=== PATIENT | female | born 1980 | race Caucasian/White ===

== ENCOUNTER 2021-08-03 08:53 | Emergency (ER) | payer BC, OTHER ==
[~2021-08-03] VITALS: Ht 175 cm; Wt 56.0 kg
[2021-08-03 08:53] VITALS: BP 141/127
[2021-08-03] MEDS ORDERED: KETOROLAC 30 MG/ML VIAL IVP ONE (09:30)
[2021-08-03] MEDS ORDERED: ORPHENADRINE 60 MG/2 ML (NORFLEX) AMP (ED ONLY) IV ONE (09:30)
--- NOTE | 2021-08-03 09:33 | ED Lower Extremity ---
General Chief Complaint: Lower Extremity Stated Complaint: R LEG CRAMPING Nursing Triage Note: ARRIVED VIA EMS FROM HOME WITH SEVERE RIGHT LEG CRAMPING STARTING LAST NIGHT. FENT 100MCG GIVEN VIA EMS. Source: patient Exam Limitations: no limitations History of Present Illness Date Seen by Provider: Aug 03, 2021 Time Seen by Provider: 09:18 Initial Comments Patient is a 40-year-old female who presents to the emergency department today with a chief complaint of severe right knee pain. She states she had acute onset of knee pain after having sex with her , she states she was bending her knee to get up out of the bed when it started suddenly. She states it reminded her of when she had charley horse pains as a child growing up except it has not let up. Patient states the pain radiates a little bit down her leg but she is able to move her foot. No numbness tingling or weakness to the leg. It hurts to attempt to move the right knee joint and move at the right hip. She is on medications for depression. She has a history of a knee trauma as a child but was never evaluated and she is uncertain which knee it was. She does not recall getting any treatment for a knee injury specifically. But she states it took months to improve. No recent illnesses such as fever, chills, cough or congestion. No chest pain or shortness of breath. She did take some THC edibles for pain during the night. She did not have Tylenol or aspirin or ibuprofen at home. She had some leftover pain medication and she took 3 throughout the night. Pain has continued to be severe. All other review of systems reviewed and negative except as stated. Onset: other (last night at 10/11pm) Pain/Injury Location: right knee Modifying Factors: Improves With Immobilization (improves pain slightly); Worse With Movement Allergies and Home Medications Allergies Uncoded Allergies: erythromycin (Allergy, Unknown, 08/03/21) Patient Home Medication List Home Medication List Reviewed: Yes Review of Systems Constitutional: see HPI, other (anxious and apprehensive) EENTM: no symptoms reported Respiratory: no symptoms reported Cardiovascular: no symptoms reported Gastrointestinal: no symptoms reported : No Musculoskeletal: joint pain (severe right lateral and posterior knee pain) Skin: no symptoms reported Psychiatric/Neurological: Anxiety, Depressed, Emotional Problems All Other Systems Reviewed Negative Unless Noted: Yes Past Cdubvdg-Wvkieu-Wclilp Hx Patient Social History Tobacco Use?: No Substance use?: Yes Substance type: Marijuana Alcohol Use?: Yes Alcohol Frequency: Rarely Physical Exam Vital Signs Vital Signs - First Documented 08/03/21 08:53 Temp 36.5 Pulse 126 Resp 16 B/P (MAP) 141/127 (132) Pulse Ox 95 O2 Delivery Room Air Capillary Refill : Less Than 3 Seconds Height, Weight, BMI Height: '" Weight: lbs. oz. kg; 18.00 BMI Method: General Appearance: WD/WN HEENT: PERRL/EOMI Neck: supple Cardiovascular: regular rate, rhythm (tachy 115) Respiratory: lungs clear, normal breath sounds Gastrointestinal: non tender, soft Hips: bilateral hip non-tender, bilateral hip normal inspection; left hip normal range of motion; bilateral hip no evidence of injury Legs: bilateral leg non-tender, bilateral leg normal inspection, bilateral leg no evidence of injury Knees: right knee bone tenderness (Lateral joint line tenderness), right knee pain, right knee other (Patient is very apprehensive with any passive range of motion, will not flex or extend the right leg at the knee. Held at about 15 degrees of flexion currently. Distal pulses in the foot are 2+. Normal cap refill. Normal sensation; tender also in the popliteal space more laterally on the right knee) Ankles: bilateral ankle non-tender, bilateral ankle normal inspection, bilateral ankle normal range of motion, bilateral ankle no evidence of injury Feet: bilateral foot non-tender, bilateral foot normal inspection, bilateral fo ot normal range of motion, bilateral foot no evidence of injury Neurologic/Tendon: normal sensation, normal motor functions Neurologic/Psychiatric: no motor/sensory deficits, alert, oriented x 3, other (anxious) Skin: normal color, warm/dry Progress/Results/Core Measures Results/Orders My Orders Orders - BRITANY CHEEMA MD Knee, Right, 3 Views (08/03/21 09:26) Ketorolac Injection (Toradol Injection) (08/03/21 09:30) Orphenadrine Inj (Ed Only) (Norflex Inje (08/03/21 09:30) Ct Extremity Lower Right Wo (08/03/21 10:10) Morphine Injection (Morphine Injection (08/03/21 10:46) Medications Given in ED Current Medications Medications Dose Ordered Sig/Avani Route Start Time Stop Time Status Last Admin Dose Admin Ketorolac Tromethamine 30 mg ONCE ONCE IVP 08/03/21 09:30 08/03/21 09:31 DC 08/03/21 09:36 30 MG Orphenadrine Citrate 60 mg ONCE ONCE IV 08/03/21 09:30 08/03/21 09:31 DC 08/03/21 09:37 60 MG Vital Signs/I&O 08/03/21 08:53 Temp 36.5 Pulse 126 Resp 16 B/P (MAP) 141/127 (132) Pulse Ox 95 O2 Delivery Room Air Blood Pressure Mean: 132 Progress Progress Note : Time: 11:51 Progress Note Discussed with Dr. Germain on for orthopedics. He states if we got her fully extended she is no longer "locked". We were able to get a knee immobilizer on her and get her up to the bathroom. Pain is moderately controlled. He will follow her up in the office and order outpatient MRI Diagnostic Imaging Diagonstic Imaging: Xray Comments [facility], [place] NAME: PARRISH STRONG [facility] REC#: [id number] PT STATUS: REG ER : 1980 PHYSICIAN: BRITANY CHEEMA MD ADMIT DATE: 08/03/21/ER Draft Date of Exam:08/03/21 KNEE, RIGHT, 3 VIEWS EXAMINATION: Right knee 3 views HISTORY: Right knee pain COMPARISON: None available. FINDINGS: There is a small knee joint effusion. No acute fracture. Joint spaces are normal. No dislocation. IMPRESSION: 1. Small knee joint effusion without fracture. Dictated on workstation # [id number] Dict: 08/03/21 0954 Trans: 08/03/21 0959 ERIC [id number] Interpreted by: RUSTAM HAWK MD Electronically signed by: Diagonstic Imaging: CT Comments [facility] [place] [place] NAME: PARRISH STRONG [employer] [facility] REC#: [id number] PT STATUS: REG ER : 1980 PHYSICIAN: BRITANY CHEEMA MD ADMIT DATE: 08/03/21/ER Draft Date of Exam:08/03/21 CT EXTREMITY LOWER RIGHT WO PROCEDURE: CT right lower extremity without contrast. TECHNIQUE: Axially acquired CT was obtained through the right lower extremity without intravenous contrast. Coronal and sagittal reformations were also performed. Auto Exposure Controls were utilized during the CT exam to meet ALARA standards for radiation dose reduction. INDICATION: Severe right leg cramping COMPARISON: None available. FINDINGS: There is no femur fracture. No tibial fracture. No fibular fracture. No patellar fracture. Alignment is normal. There is a small knee joint effusion. The anterior and posterior cruciate ligaments are grossly intact. Patellar tendon and quadriceps tendons are intact. IMPRESSION: 1. No fracture in the right knee. Dictated on workstation # [id number] Dict: 08/03/21 1118 Trans: 08/03/21 1122 CV [id number] Interpreted by: RUSTAM HAWK MD Electronically signed by: Departure Impression Primary Impression: Acute knee pain Qualified Codes: M25.561 - Pain in right knee Disposition: HOME, SELF-CARE Condition: Stable Departure-Patient Inst. Decision time for Depature: 11:41 Referrals: EDWIN GERMAIN MD Patient Instructions: Knee Pain Add. Discharge Instructions: Continue to put ice on your knee for 20 minutes at a time, 2-3 times daily. Uxyf-wwy-wfkiulc ibuprofen, 600 mg which is 3 tablets every 6 hours with food for pain. Keep the knee immobilizer in place while up and moving around. Use your toe to balance with crutches when walking. I have written you a prescription for some hydrocodone, take 1 every 6 hours as needed for more severe pain. You should be on stool softeners if you are taking this medication daily. Please call and follow-up with Dr. Germain, orthopedics. His contact information is on this paperwork. Return to the emergency room for any new, concerning or emergent complaints. Scripts Hydrocodone/Acetaminophen (Hydrocodone-Acetamin 5-325 mg) 5 Mg-325 Mg Tablet 1 TAB PO Q6H PRN for PAIN-MODERATE (5-7), #12 TAB Prov: BRITANY CHEEMA MD 08/03/21 Copy Copies To 1: EDWIN GERMAIN MD, KATHRYN M MD Aug 03, 2021 09:33
--- NOTE | 2021-08-03 10:00 | Diagnostic Imaging Report ---
EXAMINATION: Right knee 3 views HISTORY: Right knee pain COMPARISON: None available. FINDINGS: There is a small knee joint effusion. No acute fracture. Joint spaces are normal. No dislocation. IMPRESSION: 1. Small knee joint effusion without fracture. Dictated by: Dictated on workstation # [id number]
[2021-08-03] MEDS ORDERED: morphine INJ 10 MG/ML 1ML (SYR OR VIAL) IVP STA (10:46)
--- NOTE | 2021-08-03 11:23 | Diagnostic Imaging Report ---
PROCEDURE: CT right lower extremity without contrast. TECHNIQUE: Axially acquired CT was obtained through the right lower extremity without intravenous contrast. Coronal and sagittal reformations were also performed. Auto Exposure Controls were utilized during the CT exam to meet ALARA standards for radiation dose reduction. INDICATION: Severe right leg cramping COMPARISON: None available. FINDINGS: There is no femur fracture. No tibial fracture. No fibular fracture. No patellar fracture. Alignment is normal. There is a small knee joint effusion. The anterior and posterior cruciate ligaments are grossly intact. Patellar tendon and quadriceps tendons are intact. IMPRESSION: 1. No fracture in the right knee. Dictated by: Dictated on workstation # [id number]
[2021-08-03] MEDS ORDERED: ACHD5005 PO (12:06)
== END 2021-08-03 12:30 | disposition home or self-care (01) ==
LOC: EDUNIT# 08:53 → ER 08:54
DX: M25.561 Pain in right knee (principal)
CPT/HCPCS: 73562; 73700; 99283; L1830

== ENCOUNTER → 2021-08-07 | Outpatient (CLI) | payer OTHER ==
[~2021-08-07] MED LIST: ACHD5005 PO
== END ==
LOC: ORTHO 08:49
PROVIDERS: ATTEND Orthopaedic Surgery
DX: S83.241A Other tear of medial meniscus, current injury, right knee, initial encounter (principal); X58.XXXA Exposure to other specified factors, initial encounter
CPT/HCPCS: 99213

== ENCOUNTER → 2021-08-14 | Outpatient (CLI) | payer OTHER ==
--- NOTE | 2021-08-14 13:18 | Diagnostic Imaging Report ---
EXAMINATION: Magnetic resonance imaging of the right knee without intravenous contrast DATE: August 14, 2021. COMPARISON: Right knee radiographs August 03, 2021. INDICATION: 40-year-old female, right knee pain. Twisting injury a couple weeks ago. TECHNIQUE: Multiplanar, multisequence non contrast enhanced MR imaging was accomplished. FINDINGS: MENISCI: The medial meniscus is intact. 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 There is greater than 75% volume loss of the posterior horn of the lateral meniscus. There is no identified fluid-filled lateral meniscal tear or parameniscal cyst. LIGAMENTS AND TENDONS: The anterior and posterior cruciate ligaments are intact. The medial collateral ligament is intact. The iliotibial band, mid third lateral capsular ligament, fibular collateral ligament, biceps femoris tendon and conjoined tendon are intact. The quadriceps tendon and patella ligament are intact. JOINT: There is irregularity and cartilage loss of the posterior margin of the lateral tibial plateau. The medial compartment cartilage is grossly intact. There is a full-thickness cartilage fissure involving the median patellar ridge. There is mild surface irregularity of the cartilage of the medial patellar facet with minimal underlying subchondral edema. There is a small to moderate sized knee joint effusion. There is no identified intra-articular body or prominent synovitis. BONE: There is mild degenerative related marrow edema in the patella. There is no acute fracture, bone contusion, or evidence of osteonecrosis. BURSAE AND SOFT TISSUES: There is no Butler's cyst. There is nonspecific prepatellar subcutaneous edema. IMPRESSION: 1. 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 No fluid-filled lateral meniscal tear or parameniscal cyst. 2. Intact medial meniscus. 3. Intact anterior and posterior cruciate ligaments. Additional ligaments and tendons are intact. 4. Mild lateral and patellofemoral compartment osteoarthritis with small to moderate sized knee joint effusion. No identified intra-articular body or prominent synovitis. 5. No acute fracture, bone contusion, or evidence of osteonecrosis. Dictated by: Dictated on workstation # [id number]
== END ==
LOC: RAD 09:30
PROVIDERS: ATTEND Orthopaedic Surgery
DX: S83.221A Peripheral tear of medial meniscus, current injury, right knee, initial encounter (principal); M17.11 Unilateral primary osteoarthritis, right knee; X58.XXXA Exposure to other specified factors, initial encounter
CPT/HCPCS: 73721

== ENCOUNTER → 2021-08-19 | Outpatient (CLI) | payer OTHER | LOC: ORTHO 10:39 | PROVIDERS: ATTEND Orthopaedic Surgery | DX: M17.11 Unilateral primary osteoarthritis, right knee (principal); M23.306 Other meniscus derangements, unspecified meniscus, right knee | CPT/HCPCS: 20610; G0463 ==

== ENCOUNTER → 2021-08-28 | Outpatient (CLI) | payer OTHER | LOC: ORTHO 11:35 | PROVIDERS: ATTEND Orthopaedic Surgery | DX: M17.11 Unilateral primary osteoarthritis, right knee (principal); M23.306 Other meniscus derangements, unspecified meniscus, right knee | CPT/HCPCS: 99212 ==

== ENCOUNTER → 2021-09-11 | Outpatient (CLI) | payer OTHER | LOC: ORTHO 10:30 | PROVIDERS: ATTEND Orthopaedic Surgery | DX: M17.11 Unilateral primary osteoarthritis, right knee (principal) ==

== ENCOUNTER → 2021-09-25 | Outpatient (CLI) | payer OTHER | LOC: ORTHO 09:54 | PROVIDERS: ATTEND Orthopaedic Surgery | DX: M17.11 Unilateral primary osteoarthritis, right knee (principal) | CPT/HCPCS: 99212 ==

== ENCOUNTER → 2021-10-03 | Outpatient (RCR) | payer OTHER | END | disposition home or self-care (01) | PROVIDERS: ATTEND Orthopaedic Surgery | DX: M17.11 Unilateral primary osteoarthritis, right knee (principal) ==

== ENCOUNTER 2021-10-09 10:32 | Outpatient (RCR) | payer OTHER | END 2021-11-03 | disposition home or self-care (01) | PROVIDERS: ATTEND Orthopaedic Surgery | DX: M17.11 Unilateral primary osteoarthritis, right knee (principal) ==

== ENCOUNTER → 2021-10-14 | Outpatient (CLI) | payer OTHER | LOC: ORTHO 08:52 | PROVIDERS: ATTEND Orthopaedic Surgery | DX: M17.11 Unilateral primary osteoarthritis, right knee (principal) | CPT/HCPCS: 99212 ==

== ENCOUNTER → 2021-11-06 | Outpatient (CLI) | payer OTHER | LOC: ORTHO 09:53 | PROVIDERS: ATTEND Orthopaedic Surgery | DX: M17.11 Unilateral primary osteoarthritis, right knee (principal) | CPT/HCPCS: 99212 ==